=== PATIENT | female | born 1985 | race American Indian/Alaskan Native ===

== ENCOUNTER 2017-04-08 06:45 | Inpatient (IN) | payer SELFPAY ==
[2017-04-08] MEDS ORDERED: DUONEB *Not for PRN Use IH ONE ×2 (08:14→08:30)
--- NOTE | 2017-04-08 09:01 | Emergency Department Report ---
ED Asthma HPI - General Chief Complaint: Adult Asthma Stated Complaint: ASTHMA Time Seen by Provider: 04/08/17 08:21 Source: patient Mode of arrival: Ambulatory Limitations: No Limitations - History of Present Illness Initial Comments: This is a 31-year-old female nontoxic, well nourished in appearance, no acute signs of distress the present to the ED complaining of intermittent asthma exacerbation times 2-3 days. Patient stated this morning she woke up with wheezing and shortness of breath. Patient stated her only treatment she takes is nebulizer at home but that her last dose was couple days ago prior to these symptoms. Patient stated she does not have a primary care doctor that she follows for her asthma and stated she goes to emergency room to get a prescription for nebulizer treatment. Patient denies any fever, chills, difficulty breathing, headache, blurry vision, chest pain, numbness, tingling, nausea or vomiting. Patient denies any recent travels, recent hospital stays, or long car rides. Patient denies hemoptysis or calf tenderness or pain. Patient denies any allergies. Denies Past medical history besides asthma. Last menstrual cycle 04/01/17. Complaint: "asthma attack" -: Gradual, days(s) (3) Asthma History: childhood onset Severity: moderate Context: none known Associated Symptoms: none. denies: productive cough, dry cough, fever, chest pain, hemoptysis, leg edema, syncope - Related Data Current Asthma Therapy: none Home Medications Medication Instructions Recorded Confirmed Last Taken ALBUTEROL NEB's [Proventil] 2.5 mg IH TID PRN 04/08/17 04/08/17 04/08/17 06:00 Allergies Allergy/AdvReac Type Severity Reaction Status Date / Time No Known Allergies Allergy Verified 11/13/15 09:17 ED Review of Systems ROS: Stated complaint: ASTHMA Other details as noted in HPI Constitutional: denies: chills, fever Eyes: denies: eye pain, eye discharge, vision change ENT: denies: ear pain, throat pain Respiratory: wheezing. denies: cough, shortness of breath Cardiovascular: denies: chest pain, palpitations Endocrine: no symptoms reported Gastrointestinal: denies: abdominal pain, nausea, diarrhea Genitourinary: denies: urgency, dysuria, discharge Musculoskeletal: denies: back pain, joint swelling, arthralgia Skin: denies: rash, lesions Neurological: denies: headache, weakness, paresthesias Psychiatric: denies: anxiety, depression Hematological/Lymphatic: denies: easy bleeding, easy bruising ED Past Medical Hx - Past Medical History Previous Medical History?: Yes Hx Asthma: Yes - Surgical History Past Surgical History?: No - Social History Smoking Status: Current Some Day Smoker Substance Use Type: Alcohol - Medications Home Medications: Home Medications Medication Instructions Recorded Confirmed Last Taken Type ALBUTEROL NEB's [Proventil] 2.5 mg IH TID PRN 04/08/17 04/08/17 04/08/17 06:00 History ED Physical Exam - General Limitations: No Limitations General appearance: alert, in no apparent distress - Head Head exam: Present: atraumatic, normocephalic, normal inspection - Eye Eye exam: Present: normal appearance, PERRL, EOMI. Absent: scleral icterus, conjunctival injection, nystagmus, periorbital swelling, periorbital tenderness Pupils: Present: normal accommodation - ENT ENT exam: Present: normal exam, normal orophraynx, mucous membranes moist, TM's normal bilaterally, normal external ear exam - Neck Neck exam: Present: normal inspection, full ROM. Absent: tenderness, meningismus, lymphadenopathy, thyromegaly - Respiratory Respiratory exam: Present: normal lung sounds bilaterally, wheezes (dimas upper and lower lobes). Absent: respiratory distress, rales, rhonchi, stridor, chest wall tenderness, accessory muscle use, decreased breath sounds, prolonged expiratory - Cardiovascular Cardiovascular Exam: Present: regular rate, normal rhythm, normal heart sounds. Absent: bradycardia, irregular rhythm, systolic murmur, diastolic murmur, rubs , gallop - GI/Abdominal GI/Abdominal exam: Present: soft, normal bowel sounds - Rectal Rectal exam: Present: deferred - Extremities Exam Extremities exam: Present: normal inspection, full ROM, normal capillary refill. Absent: tenderness, pedal edema, joint swelling, calf tenderness - Back Exam Back exam: Present: normal inspection, full ROM. Absent: tenderness, CVA tenderness (R), CVA tenderness (L), muscle spasm, paraspinal tenderness, vertebral tenderness, rash noted - Neurological Exam Neurological exam: Present: alert, oriented X3, CN II-XII intact, normal gait, reflexes normal - Psychiatric Psychiatric exam: Present: normal affect, normal mood - Skin Skin exam: Present: warm, dry, intact, normal color. Absent: rash ED Course Vital Signs 04/08/17 04/08/17 04/08/17 07:24 08:15 08:20 Temperature 98.3 F Pulse Rate 120 H 107 H Pulse Rate [ 100 H Anterior Bilateral Throughout] Pulse Rate [ Posterior Right Bases] Respiratory 18 18 Rate Respiratory 24 Rate [Anterior Bilateral Throughout] Respiratory Rate [Posterior Right Bases] Blood Pressure 118/83 Blood Pressure 116/80 [Right] O2 Sat by Pulse 97 94 Oximetry 04/08/17 04/08/17 04/08/17 08:32 08:33 08:47 Temperature Pulse Rate Pulse Rate [ 118 H 110 H Anterior Bilateral Throughout] Pulse Rate [ 118 H Posterior Right Bases] Respiratory Rate Respiratory 20 20 Rate [Anterior Bilateral Throughout] Respiratory 20 Rate [Posterior Right Bases] Blood Pressure Blood Pressure [Right] O2 Sat by Pulse Oximetry 04/08/17 04/08/17 04/08/17 10:42 10:56 11:14 Temperature Pulse Rate 102 H Pulse Rate [ Anterior Bilateral Throughout] Pulse Rate [ Posterior Right Bases] Respiratory 18 18 20 Rate Respiratory Rate [Anterior Bilateral Throughout] Respiratory Rate [Posterior Right Bases] Blood Pressure Blood Pressure 102/69 [Right] O2 Sat by Pulse 95 Oximetry - Reevaluation(s) Reevaluation #1: 04/08/17 09:02 Patient is able to speak in full sentences with no signs of distress noted. Reevaluation #2: 04/08/17 11:42 Patient still wheezing in upper and lower lobes. Reevaluation #3: 04/08/17 11:56 Patient is nontoxic or ill in appearance. Patient is able speak full sentences with no signs of distress noted. - Consultations Consultation #1: 04/08/17 11:41 Dr. Carr consulted about patient and agrees to treatment in the Ed as well as admit. Consultation #2: 04/08/17 11:57 Dr. Lima has been consulted and agrees to accept the patient to his services. ED Medical Decision Making - Lab Data Result diagrams: 04/08/17 10:51 04/08/17 10:51 - Medical Decision Making ED course; this is a 31-year-old female that presents with asthma exacerbation 1- patient was examined by myself. Patient history and findings have been discussed with Dr. Carr and agrees to the treatment plan here as well as admitting patient for hypoxemic. Patient was prescribed DuoNeb and Solu-Medrol with minimal to no relief and wheezing still present. Chest x-ray has been obtained with negative of pneumonia with hyperinflated lungs. Patient is able to speak in full sentences with no signs of distress. Patient does not seem toxically ill in appearance during time of admission. Dr. Lima was consulted and agrees to set patient to his services. Magnesium 2 g IV and normal saline IV 1 g has been given in ED. CBC, BMP, d-dimer normal findings. ABGs have been obtained and indicates hypoxemia. I instructed the notify patient of my decision to admit the patient patient agrees to the plan of care with no further questions noted by the patient. Patient was put on 2 L oxygen as well as clip and hanger attacher for continuous pulse ox reading. Critical care attestation.: If time is entered above; I have spent that time in minutes in the direct care of this critically ill patient, excluding procedure time. ED Disposition Clinical Impression: Asthma exacerbation, Hypoxemia Disposition: OP ADMIT IP TO THIS HOSP Is pt being admited?: Yes Condition: Stable Referrals: PRIMARY CARE, [Primary Care Provider] - 3-5 Days
--- NOTE | 2017-04-08 09:37 | XRay Report ---
PA and lateral chest: SOB; wheezing. The lungs are slightly hyperinflated but otherwise clear of any nodule or infiltrate. The heart is normal in size. There is no vascular congestion. The findings are unchanged compared to prior exam in May 2015. Impression: Mild hyperinflation. No acute change.
[2017-04-08] MEDS ORDERED: MOTRIN PO ONE (09:50)
[2017-04-08 11:04] LABS: Basophils % (Auto) 0.8 % (0.0-1.8); Eosinophils % (Auto) 1.5 % (0.0-4.3); Hematocrit 42.6 % (30.3-42.9); Mean Corpuscular HGB Conc 33 % (30-34); Mean Corpuscular Hemoglobin 27 pg (28-32); Mean Corpuscular Volume 81 fl (79-97); Platelet Count 227 K/mm3 (140-440); Red Blood Count 5.23 M/mm3 (3.65-5.03); Red Cell Distribution Width 14.6 % (13.2-15.2); White Blood Count 9.6 K/mm3 (4.5-11.0)
[2017-04-08 11:23] LABS: Anion Gap 19 mmol/L; BUN/Creatinine Ratio 21.66; Blood Urea Nitrogen 13 mg/dL (7-17); Calcium 9.8 mg/dL (8.4-10.2); Carbon Dioxide 24 mmol/L (22-30); Chloride 100.4 mmol/L (98-107); Glucose 106 mg/dL (65-100); Potassium 4.7 mmol/L (3.6-5.0); Sodium 139 mmol/L (137-145)
[2017-04-08 11:28] LABS: ISTAT Base Excess -6; ISTAT DEVICE 0; ISTAT HCO3 19.4; ISTAT PCO2 32.5 (35-45); ISTAT PH 7.383 (7.35-7.45); ISTAT PO2 65 (80-105); ISTAT SO2 92; ISTAT TCO2 20
[2017-04-08] MEDS ORDERED: NACL 0.9% 1000 ML 1,000 ML IV ONE (11:38)
[2017-04-08] MEDS ORDERED: MAGNESIUM SULFATE 2GM/50ML 2 GM/50 ML BAG IV ONE (11:38)
--- NOTE | 2017-04-08 13:13 | History and Physical Report ---
History of Present Illness Chief complaint: I cant breathe, I ran out of me medicine History of present illness: 31 YO Female with Asthma, Nicotine Dependence, Medication Noncompliance presents to ED for evaluation. Pt states that she has experienced shortness of breath for the past 2 days, with worsening symptoms over the past 8 hours. Pt symptoms were not responsive to her nebulizer therapy. Pt have 3-4 treatments daily without relief of symptoms. Pt denies fever, chills, CP, Palpitations, NVD , Syncope, productive cough, or recent ill contacts. Pt seen and evaluated in ED and found to be hypoxic, and in respiratory distress after nebulizer therapy. Past History Past Medical History: other (asthma, nicotine dependence) Past Surgical History: Other (re). denies: No surgical history Social history: single, smoking Family history: hypertension Medications and Allergies Allergies Allergy/AdvReac Type Severity Reaction Status Date / Time No Known Allergies Allergy Verified 11/13/15 09:17 Home Medications Medication Instructions Recorded Confirmed Last Taken Type ALBUTEROL NEB's [Proventil] 2.5 mg IH TID PRN 04/08/17 04/08/17 04/08/17 06:00 History Review of Systems All systems: negative Constitutional: no fever Ears, nose, mouth and throat: no ear pain Breasts: no swelling Cardiovascular: chest pain Respiratory: shortness of breath Gastrointestinal: no abdominal pain Genitourinary Female: no pelvic pain Rectal: no pain Musculoskeletal: no neck stiffness Integumentary: no rash Neurological: no head injury Psychiatric: no anxiety Endocrine: no polyuria Hematologic/Lymphatic: no easy bruising Allergic/Immunologic: no urticaria Exam - Constitutional Vitals: Temp Pulse Resp BP Pulse Ox 98.3 F 102 H 20 102/69 95 04/08/17 07:24 04/08/17 10:42 04/08/17 11:14 04/08/17 10:42 04/08/17 10:42 General appearance: Present: mild distress, cachectic - EENT Eyes: Present: PERRL ENT: hearing intact, clear oral mucosa - Neck Neck: Present: supple, normal ROM - Respiratory Respiratory effort: labored Respiratory: bilateral: wheezing - Cardiovascular Heart Sounds: Present: S1 & S2. Absent: rub, click - Extremities Extremities: pulses symmetrical, No edema Peripheral Pulses: within normal limits - Abdominal General gastrointestinal: Present: soft, non-tender, non-distended, normal bowel sounds Female genitourinary: Present: normal - Integumentary Integumentary: Present: clear, warm, dry - Musculoskeletal Musculoskeletal: gait normal, strength equal bilaterally - Psychiatric Psychiatric: appropriate mood/affect, intact judgment & insight - Neurologic Neurologic: CNII-XII intact, moves all extremities Results - Labs CBC & Chem 7: 04/08/17 10:51 04/08/17 10:51 Labs: Abnormal lab results 04/08/17 04/08/17 04/08/17 Range/Units 10:51 10:51 11:20 RBC 5.23 H (3.65-5.03) M/mm3 MCH 27 L (28-32) pg Lymph % (Auto) 9.7 L (13.4-35.0) % Lymph # 0.9 L (1.2-5.4) K/mm3 Seg Neutrophils % 85.4 H (40.0-70.0) % Seg Neutrophils # 8.2 H (1.8-7.7) K/mm3 POC ABG pCO2 32.5 L (35-45) POC ABG pO2 65 L (80-105) Creatinine 0.6 L (0.7-1.2) mg/dL Glucose 106 H (65-100) mg/dL Assessment and Plan - Patient Problems (1) Respiratory failure Current Visit: Yes Status: Acute Qualifiers: Chronicity: C Respiratory failure complication: R Plan to address problem: supplemental oxygen, ABG, nebulizer therapy, supportive care, NIPPV as clinically indicated, (2) Nicotine dependence Current Visit: Yes Status: Acute Qualifiers: Nicotine product type: N Substance use status: S Plan to address problem: Pt counseled, Pt refused to pick quit date (3) Noncompliance Current Visit: Yes Status: Acute Plan to address problem: PT counseled (4) Asthma exacerbation Current Visit: Yes Status: Acute Plan to address problem: IV abx, steroids, nebulizer therapy, supplemental oxygen, supportive care. (5) DVT prophylaxis Current Visit: Yes Status: Acute
--- NOTE | 2017-04-08 13:26 | Admit Criteria Form ---
Admission Criteria Documentation: ASTHMA Clinical Indications for Admission to Inpatient Care (Place 'X' for any and all applicable criteria): Admission is indicated for ANY ONE of the following (1)(2)(3)(4)(5): [ ]I. Absent or markedly diminished breath sounds (silent chest) [X]II. Oxygen saturation < 92% [ ]III. PaCO2 = / > 42 mm Hg (5.6 kPa) [ ]IV. Peak expiratory flow rate < 40% of predicted or personal best after treatment. [ ]V. Peak expiratory flow rate < 33% of predicted or personal before after treatment [ ]. Change in mental status [ ]VII. Ventilatory support required [ ]VIII. PaO2 < 60 mm Hg (8.0 kPa) [ ]IX. Cyanosis [ ]X. Cardiac dysrhythmia (e.g., bradycardia) [ ]XI. Hemodynamic instability [ ]XII. Radiographic evidence of complication requiring inpatient treatment (e.g., pneumonia, pneumothorax) [ ]XIII. Inpatient admission required rather than observation care (also use Asthma: Observation Care guideline as appropriate) because of ANY ONE of the following: [ ]a) Respiratory finding that is severe or persistent (eg, dyspnea, tachypnea, accessory muscle use) [ ]b) Airflow measurements less than 60% of predicted or personal best that persist (e.g., over 24 hours) or worsen despite treatments [ ]c) Supplemental oxygen or respiratory treatments for over 24 hours that are performable only in acute inpatient setting [ ]d) Other condition, treatment or monitoring requiring inpatient admission. Extended stay beyond goal length of stay may be needed for (26)(27)(28): [ ]a) Severe respiratory failure (23) (29) (30) [ ]b) Secondary causes and complications (25) [ ]c) Status asthmaticus [ ]d) Chronic obstructive asthma [ ]e) Older patients (29) [ ]f) Slow resolution [ ]g) Clinically significant exacerbation of comorbidities (eg, farideh. heart failure, atrial fibrillation) The original [employer] content created by [employer] has been revised. The portions of the content which have been revised are identified through the use of italic text or in bold, and [facility] [employer] has neither reviewed nor approved the modified material. All other unmodified content is copyright [employer] Please see references footnoted in the original [facility] edition 2016 Admission Criteria Met: Yes
[2017-04-08] MEDS ORDERED: TYLENOL PO PRN (14:06)
[2017-04-09] MEDS: PROVENTIL IH PRN ×3 (03:00→19:38)
--- NOTE | 2017-04-09 07:58 | Progress Note ---
<TAMERA HALL - Last Filed: 04/09/17 09:55> Assessment and Plan Assessment and plan: Respiratory failure Hypoxia improved with 2LNC, patient currently, oxygen saturation greater than 95 %. No acute respiratory distress noted ABG when necessary Aggressive nebulizer therapy Supportive care NIPPV as clinically indicated Asthma exacerbation Continue on IV antibiotics Aggressive nebulizer therapy IV steroid Supplemental oxygen when necessary Nicotine dependence Smoking cessation counseling done patient strongly advised to quit and patient agreed upon course of action. Noncompliance Patient noncompliance with nebulizer therapy, counseling done. DVT prophylaxis Lovenox History Interval history: Patient has uneventful overnight, She verbalized feeling better. She complain still has SOB but denies chest tightness or chest pain. Hospitalist Physical - Constitutional Vitals: Temp Pulse Resp BP Pulse Ox 98.4 F 87 18 107/67 96 04/09/17 00:05 04/09/17 03:15 04/09/17 07:54 04/09/17 00:05 04/09/17 00:05 General appearance: Present: mild distress, cachectic - EENT Eyes: Present: PERRL ENT: hearing intact - Neck Neck: Present: supple - Respiratory Respiratory effort: normal Respiratory: bilateral: wheezing - Cardiovascular Heart rate: 104 (tachycardia) Rhythm: regular Heart Sounds: Present: S1 & S2 - Extremities Extremities: no ischemia Peripheral Pulses: within normal limits - Abdominal General gastrointestinal: soft, non-tender - Integumentary Integumentary: Present: clear, warm, dry - Psychiatric Psychiatric: appropriate mood/affect - Allied Health Allied health notes reviewed: nursing Results - Labs CBC & Chem 7: 04/08/17 10:51 04/08/17 10:51 Labs: Laboratory Last Values WBC 9.6 K/mm3 (4.5-11.0) 04/08/17 10:51 RBC 5.23 M/mm3 (3.65-5.03) H 04/08/17 10:51 Hgb 14.0 gm/dl (10.1-14.3) 04/08/17 10:51 Hct 42.6 % (30.3-42.9) 04/08/17 10:51 MCV 81 fl (79-97) 04/08/17 10:51 MCH 27 pg (28-32) L 04/08/17 10:51 MCHC 33 % (30-34) 04/08/17 10:51 RDW 14.6 % (13.2-15.2) 04/08/17 10:51 Plt Count 227 K/mm3 (140-440) 04/08/17 10:51 Lymph % (Auto) 9.7 % (13.4-35.0) L 04/08/17 10:51 Crowley % (Auto) 2.6 % (0.0-7.3) 04/08/17 10:51 Eos % (Auto) 1.5 % (0.0-4.3) 04/08/17 10:51 Baso % (Auto) 0.8 % (0.0-1.8) 04/08/17 10:51 Lymph # 0.9 K/mm3 (1.2-5.4) L 04/08/17 10:51 Crowley # 0.2 K/mm3 (0.0-0.8) 04/08/17 10:51 Eos # 0.1 K/mm3 (0.0-0.4) 04/08/17 10:51 Baso # 0.1 K/mm3 (0.0-0.1) 04/08/17 10:51 Seg Neutrophils % 85.4 % (40.0-70.0) H 04/08/17 10:51 Seg Neutrophils # 8.2 K/mm3 (1.8-7.7) H 04/08/17 10:51 D-Dimer < 135 ng/mlDDU (0-234) 04/08/17 10:51 POC ABG pH 7.383 (7.35-7.45) 04/08/17 11:20 POC ABG pCO2 32.5 (35-45) L 04/08/17 11:20 POC ABG pO2 65 (80-105) L 04/08/17 11:20 POC ABG HCO3 19.4 04/08/17 11:20 POC ABG Total CO2 20 04/08/17 11:20 POC ABG O2 Sat 92 04/08/17 11:20 POC ABG Base Excess -6 04/08/17 11:20 FiO2 21 % 04/08/17 11:20 Sodium 139 mmol/L (137-145) 04/08/17 10:51 Potassium 4.7 mmol/L (3.6-5.0) 04/08/17 10:51 Chloride 100.4 mmol/L (98-107) 04/08/17 10:51 Carbon Dioxide 24 mmol/L (22-30) 04/08/17 10:51 Anion Gap 19 mmol/L 04/08/17 10:51 BUN 13 mg/dL (7-17) 04/08/17 10:51 Creatinine 0.6 mg/dL (0.7-1.2) L 04/08/17 10:51 Estimated GFR > 60 ml/min 04/08/17 10:51 BUN/Creatinine Ratio 21.66 % 04/08/17 10:51 Glucose 106 mg/dL (65-100) H 04/08/17 10:51 Calcium 9.8 mg/dL (8.4-10.2) 04/08/17 10:51 <MANISHA GLYNN R - Last Filed: 04/09/17 11:29> Assessment and Plan Assessment and plan: I saw and evaluated the patient. I agree with the findings and the plan of care as documented in the Nurse Practitioner's~note, with the following corrections and additions. Hospitalist Physical - Constitutional Vitals: Temp Pulse Resp BP Pulse Ox 98.6 F 104 H 18 105/60 93 04/09/17 08:00 04/09/17 08:00 04/09/17 08:00 04/09/17 08:00 04/09/17 09:21 Results - Labs CBC & Chem 7: 04/08/17 10:51 04/08/17 10:51 Labs: Laboratory Last Values WBC 9.6 K/mm3 (4.5-11.0) 04/08/17 10:51 RBC 5.23 M/mm3 (3.65-5.03) H 04/08/17 10:51 Hgb 14.0 gm/dl (10.1-14.3) 04/08/17 10:51 Hct 42.6 % (30.3-42.9) 04/08/17 10:51 MCV 81 fl (79-97) 04/08/17 10:51 MCH 27 pg (28-32) L 04/08/17 10:51 MCHC 33 % (30-34) 04/08/17 10:51 RDW 14.6 % (13.2-15.2) 04/08/17 10:51 Plt Count 227 K/mm3 (140-440) 04/08/17 10:51 Lymph % (Auto) 9.7 % (13.4-35.0) L 04/08/17 10:51 Crowley % (Auto) 2.6 % (0.0-7.3) 04/08/17 10:51 Eos % (Auto) 1.5 % (0.0-4.3) 04/08/17 10:51 Baso % (Auto) 0.8 % (0.0-1.8) 04/08/17 10:51 Lymph # 0.9 K/mm3 (1.2-5.4) L 04/08/17 10:51 Crowley # 0.2 K/mm3 (0.0-0.8) 04/08/17 10:51 Eos # 0.1 K/mm3 (0.0-0.4) 04/08/17 10:51 Baso # 0.1 K/mm3 (0.0-0.1) 04/08/17 10:51 Seg Neutrophils % 85.4 % (40.0-70.0) H 04/08/17 10:51 Seg Neutrophils # 8.2 K/mm3 (1.8-7.7) H 04/08/17 10:51 D-Dimer < 135 ng/mlDDU (0-234) 04/08/17 10:51 POC ABG pH 7.383 (7.35-7.45) 04/08/17 11:20 POC ABG pCO2 32.5 (35-45) L 04/08/17 11:20 POC ABG pO2 65 (80-105) L 04/08/17 11:20 POC ABG HCO3 19.4 04/08/17 11:20 POC ABG Total CO2 20 04/08/17 11:20 POC ABG O2 Sat 92 04/08/17 11:20 POC ABG Base Excess -6 04/08/17 11:20 FiO2 21 % 04/08/17 11:20 Sodium 139 mmol/L (137-145) 04/08/17 10:51 Potassium 4.7 mmol/L (3.6-5.0) 04/08/17 10:51 Chloride 100.4 mmol/L (98-107) 04/08/17 10:51 Carbon Dioxide 24 mmol/L (22-30) 04/08/17 10:51 Anion Gap 19 mmol/L 04/08/17 10:51 BUN 13 mg/dL (7-17) 04/08/17 10:51 Creatinine 0.6 mg/dL (0.7-1.2) L 04/08/17 10:51 Estimated GFR > 60 ml/min 04/08/17 10:51 BUN/Creatinine Ratio 21.66 % 04/08/17 10:51 Glucose 106 mg/dL (65-100) H 04/08/17 10:51 Calcium 9.8 mg/dL (8.4-10.2) 04/08/17 10:51
[2017-04-09] MEDS: ZITHROMAX 500 MG in NACL 0.9% 250ML 250 ML IV SCH (13:21)
[2017-04-09] MEDS ORDERED: LOVENOX SUB-Q SCH (22:00)
[2017-04-10 06:23] LABS: Hematocrit 40.6 % (30.3-42.9); Hemoglobin 13.4 gm/dl (10.1-14.3); Mean Corpuscular HGB Conc 33 % (30-34); Mean Corpuscular Hemoglobin 27 pg (28-32); Mean Corpuscular Volume 81 fl (79-97); Platelet Count 256 K/mm3 (140-440); Red Blood Count 4.99 M/mm3 (3.65-5.03); Red Cell Distribution Width 14.8 % (13.2-15.2); White Blood Count 16.4 K/mm3 (4.5-11.0)
[2017-04-10 06:34] LABS: Anion Gap 18 mmol/L; Blood Urea Nitrogen 14 mg/dL (7-17); Calcium 9.4 mg/dL (8.4-10.2); Carbon Dioxide 23 mmol/L (22-30); Chloride 97.4 mmol/L (98-107); Glucose 115 mg/dL (65-100); Potassium 3.8 mmol/L (3.6-5.0); Sodium 135 mmol/L (137-145)
[2017-04-10 09:19] VITALS: BP 91/55
[2017-04-10] MEDS: ZITHROMAX 500 MG in NACL 0.9% 250ML 250 ML IV SCH (10:12)
--- NOTE | 2017-04-10 10:26 | Discharge Summary ---
Providers - Providers Date of Admission: 04/08/17 14:06 Date of discharge: 04/10/17 Attending physician: MANISHA GLYNN Primary care physician: ROOF SERVICE TECHNICIAN Hospitalization Reason for admission: Acute respiratory failure and Asthma exacerbation Condition: Good Hospital course: Patient is a 31 YO Female with Asthma, Nicotine Dependence, Medication Noncompliance presents to ED for evaluation. Pt states that she has experienced shortness of breath for the past 2 days, with worsening symptoms over the past 8 hours. She was treated with supplemental oxygen, aggressive nebulizer therapy , IV steroids and antibiotics. Patient completed a full course of antibiotic. She is being discharged on oral antibiotic. Also D/C with oral steroid taper upon discharge. Also Ongoing tobacco use smoking cessation counseling done patient strongly advised to quit. Patient agreed upon course of action. Patient clinically improved and stable for discharge. Patient was advised to follow up with her primary care. Diagnosed Respiratory failure Asthma exacerbation Nicotine dependence Noncompliance DVT prophylaxis Disposition: DC-30 STILL A PATIENT Core Measure Documentation - Palliative Care Palliative Care/ Comfort Measures: Not Applicable - Core Measures Any of the following diagnoses?: none Exam - Constitutional Vitals: Temp Pulse Resp BP Pulse Ox 97.9 F 90 18 91/55 95 04/10/17 08:00 04/10/17 08:00 04/10/17 08:00 04/10/17 08:00 04/10/17 08:00 General appearance: Present: no acute distress - EENT Eyes: Present: PERRL, EOM intact ENT: hearing intact - Neck Neck: Present: supple, normal ROM - Respiratory Respiratory effort: normal Respiratory: bilateral: wheezing (Mild clinically clear) - Cardiovascular Heart rate: 90 Rhythm: regular Heart Sounds: Present: S1 & S2 - Extremities Extremities: no ischemia Peripheral Pulses: within normal limits - Abdominal General gastrointestinal: Present: soft, non-tender Female genitourinary: Present: deferred - Rectal Rectal Exam: deferred - Integumentary Integumentary: Present: clear, warm, dry - Musculoskeletal Musculoskeletal: strength equal bilaterally - Psychiatric Psychiatric: appropriate mood/affect - Neurologic Neurologic: CNII-XII intact - Allied Health Allied health notes reviewed: nursing Plan Activity: no restrictions Weight Bearing Status: Weight Bear as Tolerated Diet: low fat, low cholesterol Follow up with: PRIMARY CARE, [Primary Care Provider] - 3-5 Days Prescriptions: ALBUTEROL NEB's [Proventil 0.083% NEBS] 2.5 mg IH TID PRN #30 nebu PRN Reason: Wheezing Azithromycin [Zithromax TAB] 500 mg PO QDAY 7 Days Prednisone [predniSONE 10 mg (6-Day Pack, 21 Tabs)] 10 mg PO .TAPER #1 tab.ds.pk
== END 2017-04-10 13:55 | disposition home or self-care (01) | DRG 189 ==
LOC: ED 06:45 → 3A 14:06
PROVIDERS: ADMIT Internal Medicine; ATTEND Hospitalist
PROC: 4A033R1 Measurement of Arterial Saturation, Peripheral, Percutaneous Approach (ICD-10-PCS; principal; 2017-04-08)
DX: J96.00 Acute respiratory failure, unspecified whether with hypoxia or hypercapnia (principal); J45.901 Unspecified asthma with (acute) exacerbation; F17.210 Nicotine dependence, cigarettes, uncomplicated; Z91.14 Patient's other noncompliance with medication regimen; Z71.6 Tobacco abuse counseling; Z71.89 Other specified counseling; Z82.49 Family history of ischemic heart disease and other diseases of the circulatory system
CPT/HCPCS: 36415; 71020; 80048; 82803; 85025; 85379; 94640; 94760; 96365; 96366; 96372; J0456; J1650; J2920; J2930; J3475; J7030; J7050

== ENCOUNTER 2021-06-08 17:57 | Emergency (ER) | payer OTHER ==
[2021-06-08 18:06] VITALS: BP 89/65
--- NOTE | 2021-06-08 18:38 | Emergency Department Report ---
ED Psych HPI - General Chief Complaint: Anxiety Stated Complaint: anxiety headache Time Seen by Provider: 06/08/21 18:09 Source: patient Mode of arrival: Ambulatory - History of Present Illness Initial Comments: 35-year-old female with a past medical history of asthma presents to the ER today with complaints of "bad anxiety". Patient states that she has been having issues with anxiety for the past 2 years. She states that going to longterm for 5 days 2 years ago triggered anxiety. She states that she has been dealing with it on her own and also talking to friends, but she states that in April of this year she feels like her anxiety has increased. She states that "life has been a lot for me". She reports lots of family stressors. She states that she has been having a hard time sleeping. She is also been feeling depressed. She denies any hallucinations, suicidal ideations or homicidal ideations. She states that she drinks occasionally. She denies any illicit drug use. She states that she has never had to be hospitalized for any psychiatric issues before in the past. She is never sought medical attention for her anxiety or depression in the past. MD Complaint: feels depressed, other (Anxiety) -: year(s) (2) - Related Data Previous Rx's Medication Instructions Recorded Last Taken Type ALBUTEROL NEB's [Proventil 0.083% 2.5 mg IH TID PRN #30 nebu 04/10/17 Unknown Rx NEBS] Azithromycin [Zithromax TAB] 500 mg PO QDAY 7 Days tablet 04/10/17 Unknown Rx Prednisone [predniSONE 10 mg 10 mg PO .TAPER #1 tab.ds.pk 04/10/17 Unknown Rx (6-Day Pack, 21 Tabs)] Citalopram [celeXA] 20 mg PO QDAY #20 tablet 06/08/21 Unknown Rx Allergies Allergy/AdvReac Type Severity Reaction Status Date / Time No Known Allergies Allergy Verified 06/08/21 18:03 ED Review of Systems ROS: Stated complaint: anxiety headache Other details as noted in HPI Comment: All other systems reviewed and negative Constitutional: denies: chills, fever Eyes: denies: eye pain, eye discharge, vision change ENT: denies: ear pain, throat pain, dental pain, hearing loss Respiratory: denies: cough, shortness of breath, SOB with exertion, SOB at rest, stridor, wheezing Cardiovascular: denies: chest pain, palpitations, dyspnea on exertion, orthopnea Endocrine: no symptoms reported Gastrointestinal: denies: abdominal pain, nausea, diarrhea Genitourinary: denies: urgency, dysuria, discharge Musculoskeletal: denies: back pain, joint swelling, arthralgia Neurological: denies: headache, weakness, numbness, paresthesias, confusion, abnormal gait, vertigo Psychiatric: anxiety, depression. denies: auditory hallucinations, visual hallucinations, homicidal thoughts, suicidal thoughts Hematological/Lymphatic: denies: easy bleeding, easy bruising, swollen glands ED Past Medical Hx - Past Medical History Hx Deep Vein Thrombosis: Yes Hx Asthma: Yes - Surgical History Past Surgical History?: No - Social History Smoking Status: Never Smoker - Medications Home Medications: Home Medications Medication Instructions Recorded Confirmed Last Taken Type ALBUTEROL NEB's [Proventil 0.083% 2.5 mg IH TID PRN #30 nebu 04/10/17 Unknown Rx NEBS] Azithromycin [Zithromax TAB] 500 mg PO QDAY 7 Days tablet 04/10/17 Unknown Rx Prednisone [predniSONE 10 mg 10 mg PO .TAPER #1 tab.ds.pk 04/10/17 Unknown Rx (6-Day Pack, 21 Tabs)] Citalopram [celeXA] 20 mg PO QDAY #20 tablet 06/08/21 Unknown Rx ED Physical Exam - General Limitations: No Limitations General appearance: alert, in no apparent distress - Head Head exam: Present: atraumatic, normocephalic, normal inspection - Eye Eye exam: Present: normal appearance, PERRL, EOMI Pupils: Present: normal accommodation - ENT ENT exam: Present: normal exam, mucous membranes moist - Neck Neck exam: Present: normal inspection, full ROM. Absent: meningismus - Respiratory Respiratory exam: Present: normal lung sounds bilaterally. Absent: respiratory distress, wheezes, rales, rhonchi - Cardiovascular Cardiovascular Exam: Present: regular rate, normal rhythm, normal heart sounds - GI/Abdominal GI/Abdominal exam: Present: soft. Absent: distended, tenderness, guarding, rebound - Neurological Exam Neurological exam: Present: alert, oriented X3, CN II-XII intact, normal gait - Psychiatric Psychiatric exam: Present: normal affect, depressed. Absent: anxious, homicidal ideation, suicidal ideation - Skin Skin exam: Present: intact ED Course Vital Signs 06/08/21 18:02 Temperature 98.6 F Pulse Rate 86 Respiratory 20 Rate Blood Pressure 89/65 O2 Sat by Pulse 99 Oximetry ED Medical Decision Making - Medical Decision Making 35-year-old female with a past medical history of asthma presents to the ER today with complaints of "bad anxiety". Patient states that she has been having issues with anxiety for the past 2 years. She states that going to longterm for 5 days 2 years ago triggered anxiety. She states that she has been dealing with it on her own and also talking to friends, but she states that in April of this year she feels like her anxiety has increased. She states that "life has been a lot for me". She reports lots of family stressors. She states that she has been having a hard time sleeping. She is also been feeling depressed. She denies any hallucinations, suicidal ideations or homicidal ideations. She states that she drinks occasionally. She denies any illicit drug use. She states that she has never had to be hospitalized for any psychiatric issues before in the past. She is never sought medical attention for her anxiety or depression in the past. 2000: Patient is currently mentally stable. She is not toxic or ill-appearing. She has no SI or HI. No evidence of psychosis, severe anxiety or severe depression on exam at this time. She is not toxic or ill-appearing. Her vital signs are stable. Emergent treatment/intervention not indicated at this time. Emergent psych consult not indicated at this time. Patient will be given referral information to outpatient mental health clinics for follow-up. She will be started on low-dose Celexa and informed her to follow-up with one of the mental health clinics for continued treatment of her anxiety and depression. Patient expressed understanding of instructions and agree with plan. Patient stable at time of discharge. Critical care attestation.: If time is entered above; I have spent that time in minutes in the direct care of this critically ill patient, excluding procedure time. ED Disposition Clinical Impression: Anxiety and depression Disposition: HOME / SELF CARE / HOMELESS Is pt being admited?: No Does the pt Need Aspirin: No Condition: Stable Instructions: Generalized Anxiety Disorder, Adult, Living With Depression, Managing Anxiety, Adult Additional Instructions: I recommend following up with one of the outpatient mental health clinics given to you on your discharge instructions. Take the celexa as prescribed. Return to ED if your symptoms worsens or changes in anyway. Prescriptions: Citalopram [celeXA] 20 mg PO QDAY #20 tablet Referrals: [facility] [Outside] - 3-5 Days Time of Disposition: 18:38
== END 2021-06-08 18:46 | disposition home or self-care (01) ==
LOC: ED 17:57
DX: F41.8 Other specified anxiety disorders (principal); J45.909 Unspecified asthma, uncomplicated
CPT/HCPCS: 99282